=== PATIENT | female | born 1950 | race Caucasian/White ===

== ENCOUNTER 2023-11-23 16:13 | Emergency (ER) | payer MEDICARE, BC ==
[~2023-11-23] VITALS: Ht 147.3 cm; Wt 36.3 kg
[2023-11-23 19:13] VITALS: BP 130/78; TEMP 98.4; O2SAT 98
== END 2023-11-23 19:16 | disposition home or self-care (01) ==
LOC: ER 16:28
DX: S30.0XXA Contusion of lower back and pelvis, initial encounter (principal); K59.00 Constipation, unspecified; Z88.8 Allergy status to other drugs, medicaments and biological substances; W01.0XXA Fall on same level from slipping, tripping and stumbling without subsequent striking against object, initial encounter; Y93.89 Activity, other specified; Y92.098 Other place in other non-institutional residence as the place of occurrence of the external cause; Y99.8 Other external cause status
CPT/HCPCS: 72131-TC; 72192-TC

== ENCOUNTER 2025-03-13 14:03 | Emergency (ER) | payer MEDICARE, BC ==
[~2025-03-13] VITALS: Ht 152.4 cm; Wt 43.5 kg
[2025-03-13] MEDS ORDERED: PROPOFOL 20 ML IV ONE (18:02)
[2025-03-13] MEDS: PROPOFOL 200 MG/20 ML VIAL IV ONE (18:26)
[2025-03-13] MEDS: KETAMINE HCL(200MG/20ML) 10 MG/ML VIAL IV ONE (18:27)
[2025-03-13] MEDS ORDERED: IBUP-1953 PO (19:00)
[2025-03-13] MEDS ORDERED: HYDR-3972 PO (19:00)
[2025-03-13 20:18] VITALS: BP 136/74; TEMP 97.5; O2SAT 100
== END 2025-03-13 20:18 | disposition home or self-care (01) ==
LOC: ER 14:07
DX: S52.601A Unspecified fracture of lower end of right ulna, initial encounter for closed fracture (principal); S42.211A Unspecified displaced fracture of surgical neck of right humerus, initial encounter for closed fracture; W19.XXXA Unspecified fall, initial encounter; Y93.89 Activity, other specified; Y92.89 Other specified places as the place of occurrence of the external cause; Y99.8 Other external cause status
CPT/HCPCS: 25605; 99152; 73502; 73030; 73110 ×2; 96374; 99285; J2704; G0500